=== PATIENT | male | born 1990 | race African-American/Black ===

== ENCOUNTER 2018-01-26 14:02 | Inpatient (IN) | payer BC ==
[2018-01-26 14:17] VITALS: BMI 23.8
--- NOTE | 2018-01-26 14:41 | HP ---
CIWA Score - CIWA Score Nausea/Vomitin Muscle Tremors: 3 Anxiety: 3 Agitation: 2 Paroxysmal Sweats: 1-Minimal Palms Moist Orientation: 0-Oriented Tacttile Disturbances: 1-Very Mild Itch/Numbness Auditory Disturbances: 1-Very Mild Visual Disturbances: 0-None Headache: 2-Mild CIWA-Ar Total Score: 16 Admission ROS BHS - HPI Chief Complaint: i need help to stop drinking alcohol,ecstasy Allergies/Adverse Reactions: Allergies Allergy/AdvReac Type Severity Reaction Status Date / Time No Known Allergies Allergy Verified 01/26/18 14:35 History of Present Illness: this 27 years old male with alcohol and ecstasy dependence,seeking detox, withdrawal symptom,never been in detox before hiv since 2016 no significant period of sobriety seizure last 3 weeks ago Exam Limitations: No Limitations - Ebola screening Have you traveled outside of the country in the last 21 days: No Have you been sick,other than usual withdrawal symptoms: No - Review of Systems Constitutional: Loss of Appetite, Malaise, Night Sweats, Changes in sleep, Weakness, Unintentional Wgt. Loss EENT: reports: Nose Congestion Respiratory: reports: No Symptoms reported Cardiac: reports: Palpitations GI: reports: Diarrhea, Nausea, Vomiting, Abdominal cramping : reports: No Symptoms Reported Musculoskeletal: reports: Back Pain, Muscle Pain Integumentary: reports: Dryness Neuro: reports: Headache, Tremors Endocrine: reports: No Symptoms Reported Hematology: reports: No Symptoms Reported, Other (hiv) Psychiatric: reports: No Sypmtoms Reported, Judgement Intact, Mood/Affect Appropiate, Orientated x3, Anxious, Depressed Patient History - Patient Medical History Hx Anemia: No Hx Asthma: No Hx Chronic Obstructive Pulmonary Disease (COPD): No Hx Cancer: No Hx Cardiac Disorders: No Hx Congestive Heart Failure: No Hx Hypertension: No Hx Hypercholesterolemia: No Hx Pacemaker: No HX Cerebrovascular Accident: No Hx Seizures: Yes (last 3 weeks ago) Hx Dementia: No Hx Diabetes: No Hx Gastrointestinal Disorders: No Hx Liver Disease: No Hx Genitourinary Disorders: No Hx Sexually Transmitted Disorders: No (genital herpes) Hx Renal Disease (ESRD): No Hx Thyroid Disease: No Hx Human Immunodeficiency Virus (HIV): Yes (2016) Hx Hepatitis C: No Hx Depression: Yes (anxiety,insomnia) Hx Suicide Attempt: No Hx Bipolar Disorder: No Hx Schizophrenia: No Other Medical History: no suicidal,no homicidal - Patient Surgical History Past Surgical History: No - PPD History Previous Implant?: Yes Documented Results: Negative w/o proof Implanted On Prior R Admission?: No PPD to be Administered?: Yes - Smoking Cessation Smoking history: Never smoked - Substance & Tx. History Hx Alcohol Use: Yes Hx Substance Use: Yes Substance Use Type: Alcohol Hx Substance Use Treatment: No - Substances Abused Alcohol Route: Oral Frequency: Daily Amount used: 2 6PKS BEER/ 1 PINT COGNAC Age of first use: 16 Date of Last Use: 01/25/18 Ectasy Route: Oral Frequency: 3-6 times per week Amount used: 2-4 PILLS Age of first use: 25 Date of Last Use: 01/25/18 Family Disease History - Family Disease History Family Disease History: CA: Mother (alcohol,cancer of thyroid,hiv), Other: Father (alcohol), Mother Admission Physical Exam [facility] - Vital Signs Vital Signs: Vital Signs - 24 hr 01/26/18 14:02 Temperature 98 F Pulse Rate 100 H Respiratory 20 Rate Blood Pressure 132/74 - Physical General Appearance: Yes: Moderate Distress, Tremorous, Irritable, Sweating, Anxious HEENTM: Yes: Normal ENT Inspection, JEREMIAH, Pharynx Normal Respiratory: Yes: Lungs Clear, Normal Breath Sounds, No Respiratory Distress Neck: Yes: Within Normal Limits, Supple, Trachea in good position Breast: Yes: Within Normal Limits Cardiology: Yes: Tachycardia Abdominal: Yes: Within Normal Limits, Normal Bowel Sounds, Non Tender, Soft Genitourinary: Yes: Within Normal Limits Back: Yes: Normal Inspection, Muscle Spasm Musculoskeletal: Yes: Back pain, Muscle Pain Extremities: Yes: Tremors Neurological: Yes: supervisor contingents II-XII NML intact, Alert, Motor Strength 5/5 Integumentary: Yes: Dry Lymphatic: Yes: Within Normal Limits - Diagnostic (1) Alcohol dependence with uncomplicated withdrawal Current Visit: Yes Status: Acute (2) Ecstasy abuse Current Visit: Yes Status: Acute (3) HIV (human immunodeficiency virus infection) Current Visit: Yes Status: Acute (4) Insomnia secondary to depression with anxiety Current Visit: Yes Status: Acute (5) Seizure Current Visit: Yes Status: Acute Cleared for Admission [facility] - Detox or Rehab [facility] Level of Care: Medically Managed Detox Regimen/Protocol: Librium BHS Breath Alcohol Content Breath Alcohol Content: 0 Urine Drug Screen - Results Drug Screen Negative: No Urine Drug Screen Results: MDMA-Ecstasy
[2018-01-26] MEDS ORDERED: MAGNESIUM HYDROX 2400MG/30ML ORAL SUSPENSION 30 ML CUP PO PRN (15:03)
[2018-01-26] MEDS ORDERED: IBUPROFEN 400 MG TABLET (FP) PO PRN (15:03)
[2018-01-26] MEDS ORDERED: MAG HYDROX/AL HYDROX/SIMETH 30 ML UNIT-DOSE CUP PO PRN (15:03)
[2018-01-26] MEDS ORDERED: MENTHOL/PHENOL 1 EACH UD MM PRN (15:03)
[2018-01-26] MEDS ORDERED: hydrOXYzine PAMOATE 50 MG CAPSULE (FP) PO PRN (15:03)
[2018-01-26] MEDS ORDERED: ACETAMINOPHEN 325 MG TABLET (FP) PO PRN (15:03)
[2018-01-26] MEDS ORDERED: guaiFENesin/D-METHORPHAN HB 10 ML UNIT-DOSE CUPS PO PRN (15:03)
[2018-01-26] MEDS ORDERED: MAGNESIUM CITRATE 300 ML BOTTLE PO PRN (15:03)
[2018-01-26] MEDS ORDERED: chlordiazePOXIDE HCL 25 MG CAPSULE PO PRN (15:03)
[2018-01-26] MEDS ORDERED: LOPERAMIDE HCL 2 MG CAPSULE PO PRN (15:03)
[2018-01-26] MEDS ORDERED: chlordiazePOXIDE HCL 25 MG CAPSULE PO ONE (15:03)
[2018-01-26] MEDS ORDERED: P-EPHED 60MG/TRIPROLIDI 2.5MG TABLET PO PRN (15:03)
[2018-01-26] MEDS: chlordiazePOXIDE HCL 25 MG CAPSULE PO SCH ×2 (17:27→22:16)
[2018-01-26] MEDS: THIAMINE HCL 100 MG TABLET (FP) PO SCH (22:16)
[2018-01-27 00:04] LABS: URINE APPEARANCE CLEAR; URINE BILIRUBIN NEGATIVE (<2.0 mg/dL); URINE COLOR YELLOW; URINE GLUCOSE (UA) NEGATIVE (NEGATIVE); URINE KETONE TRACE (NEGATIVE); URINE LEUK ESTERASE NEGATIVE (NEGATIVE); URINE NITRITE NEGATIVE (NEGATIVE); URINE PROTEIN NEGATIVE (NEGATIVE); URINE UROBILINOGEN 4.0 E.U/dl mg/dL (0.2-1.0)
[2018-01-27] MEDS: chlordiazePOXIDE HCL 25 MG CAPSULE PO SCH ×4 (05:19→22:14)
[2018-01-27 10:00] LABS: HEMATOCRIT 47.4 % (35.4-49); MCH 29.8 pg (25.7-33.7); MCHC 33.7 g/dl (32.0-35.9); MEAN CELL VOLUME 88.3 fl (80-96); PLATELET COUNT 268 K/MM3 (134-434); RBC 5.36 M/mm3 (4.00-5.60); RDW 13.1 % (11.9-15.9); WHITE BLOOD COUNT 6.7 K/mm3 (4.0-10.0)
[2018-01-27 10:04] LABS: CHLORIDE 104 mmol/L (98-107); POTASSIUM 3.6 mmol/L (3.5-5.1); SODIUM 141 mmol/L (136-145)
[2018-01-27] MEDS: PRENATAL VITAMINS W/ FOLIC ACID TABLET (FP) PO SCH (10:32)
[2018-01-27 10:37] LABS: ALBUMIN 4.2 g/dl (3.4-5.0); ALK PHOS 88 U/L (45-117); ANION GAP 8 (8-16); BILIRUBIN,TOTAL 1.5 mg/dL (0.2-1.0); BLOOD UREA NITROGEN 7 mg/dL (7-18); CALCIUM 9.3 mg/dL (8.5-10.1); CO2 29 mmol/L (21-32); CREATININE 1.1 mg/dL (0.7-1.3); GLUCOSE,RANDOM 79 mg/dL (74-106); SGOT/AST 16 U/L (15-37); SGPT/ALT 18 U/L (12-78); TOT PROT 8.2 g/dl (6.4-8.2)
--- NOTE | 2018-01-27 15:56 | PN ---
[facility] CIWA - CIWA Score Nausea/Vomitin-No Nausea/No Vomiting Muscle Tremors: None Anxiety: 5 Agitation: 2 Paroxysmal Sweats: 3 Orientation: 0-Oriented Tacttile Disturbances: 3-Moderate Itch/Numb/Burn Auditory Disturbances: 0-None Visual Disturbances: 2-Mild Sensitivity Headache: 0-None Present CIWA-Ar Total Score: 15 BHS Progress Note (SOAP) Subjective: Interrupted sleep, Fatigue, Anxious. Objective: PATIENT A & O X 3, OBSERVED AMBULATING ON UNIT. NO ACUTE DISTRESS. 01/27/18 15:57 Vital Signs Temperature 96.1 F L 01/27/18 13:31 Pulse Rate 90 01/27/18 13:31 Respiratory Rate 20 01/27/18 13:31 Blood Pressure 106/67 01/27/18 13:31 O2 Sat by Pulse Oximetry (%) Laboratory Tests 01/26/18 01/27/18 01/27/18 Unknown 07:00 07:00 WBC 6.7 RBC 5.36 Hgb 16.0 Hct 47.4 MCV 88.3 MCH 29.8 MCHC 33.7 RDW 13.1 Plt Count 268 MPV 9.0 Sodium 141 Potassium 3.6 Chloride 104 Carbon Dioxide 29 Anion Gap 8 BUN 7 Creatinine 1.1 Creat Clearance w eGFR > 60 Random Glucose 79 Calcium 9.3 Total Bilirubin 1.5 H AST 16 ALT 18 Alkaline Phosphatase 88 Total Protein 8.2 Albumin 4.2 Urine Color Yellow Urine Appearance Clear Urine pH 6.0 Ur Specific [place] 1.011 Urine Protein Negative Urine Glucose (UA) Negative Urine Ketones Trace H Urine Blood Negative Urine Nitrite Negative Urine Bilirubin Negative Urine Urobilinogen 4.0 e.u/dl Ur Leukocyte Esterase Negative RPR Titer 01/27/18 07:00 WBC RBC Hgb Hct MCV MCH MCHC RDW Plt Count MPV Sodium Potassium Chloride Carbon Dioxide Anion Gap BUN Creatinine Creat Clearance w eGFR Random Glucose Calcium Total Bilirubin AST ALT Alkaline Phosphatase Total Protein Albumin Urine Color Urine Appearance Urine pH Ur Specific [place] Urine Protein Urine Glucose (UA) Urine Ketones Urine Blood Urine Nitrite Urine Bilirubin Urine Urobilinogen Ur Leukocyte Esterase RPR Titer Nonreactive LABS NOTED. Assessment: 01/27/18 15:58 WITHDRAWAL SYMPTOMS. Plan: CONTINUE DETOX.
--- NOTE | 2018-01-27 15:58 | CONSULT ---
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 Substance Abuse History: moking Cessation. Smoking history: Never smoked. - Substance & Tx. History. Hx Alcohol Use: Yes. Hx Substance Use: Yes. Substance Use Type: Alcohol. Hx Substance Use Treatment: No. - Substances Abused. Alcohol. Route: Oral. Frequency: Daily. Amount used: 2 6PKS BEER / 1 PINT [place]GNAC. Age of first use: 16. Date of Last Use: 01/25/18. Ectasy. Route: Oral. Frequency: 3-6 times per week. Amount used: 2-4 PILLS. Age of first use: 25. Date of Last Use: 01/25/18 Medical History: Seizure history Psychiatric History: Denies Physical/Sexual Abuse/Trauma History: Denies Additional Comment: Observation. Detox Unit Carte Protocol Mental Status Exam - Mental Status Exam Alert and Oriented to: Person Cognitive Function: Fair Patient Appearance: Unkempt Mood: Sad Affect: Flat Patient Behavior: Sedated Speech Pattern: Delayed Voice Loudness: Mildly Soft/Quiet Thought Process: Circumstantial Thought Disorder: Being Controlled Hallucinations: Denies Suicidal Ideation: Denies Homicidal Ideation: Denies Insight/Judgement: Fair Sleep: Difficulty falling asleep Appetite: Fair Muscle strength/Tone: Mild Hypotonicity Gait/Station: Shuffling Additional Comments: Observation. Detox Unit Carte Protocol Psychiatric Findings - Problem List (Independence 1, 2,3) (1) Benzodiazepine abuse Current Visit: Yes Status: Acute (2) Nicotine dependence Current Visit: Yes Status: Acute (3) Alcohol dependence with uncomplicated withdrawal Current Visit: Yes Status: Acute (4) Ecstasy abuse Current Visit: Yes Status: Acute (5) Drug-induced mood disorder Current Visit: Yes Status: Suspected - Initial Treatment Plan Initial Treatment Plan: Observation. Detox Unit Carte Protocol
--- NOTE | 2018-01-27 16:34 | EKG ---
Test Reason : Blood Pressure : / mmHG Vent. Rate : 069 BPM Atrial Rate : 069 BPM P-R Int : 122 ms QRS Dur : 090 ms QT Int : 392 ms P-R-T Axes : 034 075 064 degrees QTc Int : 420 ms NORMAL SINUS RHYTHM WITH SINUS ARRHYTHMIA NORMAL ECG NO PREVIOUS ECGS AVAILABLE Confirmed by ALBERTO PLATT, SLOANE ([id number]) on 01/27/2018 4:33:51 PM Referred By: Confirmed By:SLOANE DOMINGUEZ MD
[2018-01-27] MEDS: THIAMINE HCL 100 MG TABLET (FP) PO SCH (22:14)
[2018-01-27] MEDS: MELATONIN 5 MG TABLETS PO PRN (22:15)
[2018-01-28] MEDS: chlordiazePOXIDE HCL 25 MG CAPSULE PO SCH ×2 (05:49→10:15)
[2018-01-28] MEDS: PRENATAL VITAMINS W/ FOLIC ACID TABLET (FP) PO SCH (10:15)
--- NOTE | 2018-01-28 17:16 | PN ---
[facility] CIWA - CIWA Score Nausea/Vomitin-No Nausea/No Vomiting Muscle Tremors: 2 Anxiety: 4-Mod. Anxious/Guarded Agitation: 2 Paroxysmal Sweats: No Perspiration Orientation: 0-Oriented Tacttile Disturbances: 2-Mild Itch/Numbness/Burn Auditory Disturbances: 1-Very Mild Visual Disturbances: 3-Moderate Sensitivity Headache: 0-None Present CIWA-Ar Total Score: 14 BHS Progress Note (SOAP) Subjective: Tremors, Anxious, Fatigue. Objective: PATIENT A & O X 3, OBSERVED AMBULATING ON UNIT. NO ACUTE DISTRESS. 01/28/18 17:15 Vital Signs Temperature 97.9 F 01/28/18 14:08 Pulse Rate 84 01/28/18 14:08 Respiratory Rate 20 01/28/18 14:08 Blood Pressure 100/68 01/28/18 14:08 O2 Sat by Pulse Oximetry (%) Laboratory Tests 01/26/18 01/27/18 01/27/18 Unknown 07:00 07:00 WBC 6.7 RBC 5.36 Hgb 16.0 Hct 47.4 MCV 88.3 MCH 29.8 MCHC 33.7 RDW 13.1 Plt Count 268 MPV 9.0 Sodium 141 Potassium 3.6 Chloride 104 Carbon Dioxide 29 Anion Gap 8 BUN 7 Creatinine 1.1 Creat Clearance w eGFR > 60 Random Glucose 79 Calcium 9.3 Total Bilirubin 1.5 H AST 16 ALT 18 Alkaline Phosphatase 88 Total Protein 8.2 Albumin 4.2 Urine Color Yellow Urine Appearance Clear Urine pH 6.0 Ur Specific [place] 1.011 Urine Protein Negative Urine Glucose (UA) Negative Urine Ketones Trace H Urine Blood Negative Urine Nitrite Negative Urine Bilirubin Negative Urine Urobilinogen 4.0 e.u/dl Ur Leukocyte Esterase Negative RPR Titer 01/27/18 07:00 WBC RBC Hgb Hct MCV MCH MCHC RDW Plt Count MPV Sodium Potassium Chloride Carbon Dioxide Anion Gap BUN Creatinine Creat Clearance w eGFR Random Glucose Calcium Total Bilirubin AST ALT Alkaline Phosphatase Total Protein Albumin Urine Color Urine Appearance Urine pH Ur Specific [place] Urine Protein Urine Glucose (UA) Urine Ketones Urine Blood Urine Nitrite Urine Bilirubin Urine Urobilinogen Ur Leukocyte Esterase RPR Titer Nonreactive LABS NOTED. Assessment: 01/28/18 17:15 WITHDRAWAL SYMPTOMS. Plan: CONTINUE DETOX.
[2018-01-28] MEDS: chlordiazePOXIDE 5 MG CAPSULE PO SCH ×2 (17:34→22:21)
[2018-01-28] MEDS: THIAMINE HCL 100 MG TABLET (FP) PO SCH (22:21)
[2018-01-29] MEDS: chlordiazePOXIDE 5 MG CAPSULE PO SCH ×2 (05:14→10:19)
[2018-01-29] MEDS: PRENATAL VITAMINS W/ FOLIC ACID TABLET (FP) PO SCH (10:19)
--- NOTE | 2018-01-29 15:22 | PN ---
BHS Progress Note (SOAP) Subjective: Fatigue, Interrupted Sleep. Objective: PATIENT A & O X 2 (UNCERTAIN ABOUT CURRENT DAY / DATE). NO ACUTE DISTRESS. 01/29/18 15:20 Vital Signs Temperature 96.4 F L 01/29/18 14:48 Pulse Rate 84 01/29/18 14:48 Respiratory Rate 18 01/29/18 14:48 Blood Pressure 133/70 01/29/18 14:48 O2 Sat by Pulse Oximetry (%) Laboratory Tests 01/26/18 01/27/18 01/27/18 Unknown 07:00 07:00 WBC 6.7 RBC 5.36 Hgb 16.0 Hct 47.4 MCV 88.3 MCH 29.8 MCHC 33.7 RDW 13.1 Plt Count 268 MPV 9.0 Sodium 141 Potassium 3.6 Chloride 104 Carbon Dioxide 29 Anion Gap 8 BUN 7 Creatinine 1.1 Creat Clearance w eGFR > 60 Random Glucose 79 Calcium 9.3 Total Bilirubin 1.5 H AST 16 ALT 18 Alkaline Phosphatase 88 Total Protein 8.2 Albumin 4.2 Urine Color Yellow Urine Appearance Clear Urine pH 6.0 Ur Specific [place] 1.011 Urine Protein Negative Urine Glucose (UA) Negative Urine Ketones Trace H Urine Blood Negative Urine Nitrite Negative Urine Bilirubin Negative Urine Urobilinogen 4.0 e.u/dl Ur Leukocyte Esterase Negative RPR Titer 01/27/18 07:00 WBC RBC Hgb Hct MCV MCH MCHC RDW Plt Count MPV Sodium Potassium Chloride Carbon Dioxide Anion Gap BUN Creatinine Creat Clearance w eGFR Random Glucose Calcium Total Bilirubin AST ALT Alkaline Phosphatase Total Protein Albumin Urine Color Urine Appearance Urine pH Ur Specific [place] Urine Protein Urine Glucose (UA) Urine Ketones Urine Blood Urine Nitrite Urine Bilirubin Urine Urobilinogen Ur Leukocyte Esterase RPR Titer Nonreactive LABS NOTED. Assessment: 01/29/18 15:21 WITHDRAWAL SYMPTOMS. Plan: CONTINUE DETOX. INCREASE DAILY PO FLUID INTAKE. ENCOURAGE AMBULATION. PATIENT SCHEDULED FOR D/C TOMORROW.
[2018-01-29] MEDS: chlordiazePOXIDE HCL 10 MG CAPSULE PO SCH ×2 (18:00→22:19)
[2018-01-29] MEDS: THIAMINE HCL 100 MG TABLET (FP) PO SCH (22:19)
[2018-01-29] MEDS: MELATONIN 5 MG TABLETS PO PRN (22:20)
[2018-01-30] MEDS: chlordiazePOXIDE HCL 10 MG CAPSULE PO SCH (05:19)
[2018-01-30 06:03] VITALS: BP 102/70; PULSE 75; TEMP 97
--- NOTE | 2018-01-30 12:03 | DS ---
[facility] Detox Discharge Summary Admission Date: 01/26/18 Discharge Date: 01/30/18 - History Present History: Alcohol Dependence Pertinent Past History: HIV infection - Physical Exam Results Vital Signs: Vital Signs Temperature 97 F L 01/30/18 06:02 Pulse Rate 75 01/30/18 06:02 Respiratory Rate 18 01/30/18 06:02 Blood Pressure 102/70 01/30/18 06:02 O2 Sat by Pulse Oximetry (%) Pertinent Admission Physical Exam Findings: Withdrawal symptoms Laboratory Tests 01/26/18 01/27/18 01/27/18 Unknown 07:00 07:00 WBC 6.7 RBC 5.36 Hgb 16.0 Hct 47.4 MCV 88.3 MCH 29.8 MCHC 33.7 RDW 13.1 Plt Count 268 MPV 9.0 Sodium 141 Potassium 3.6 Chloride 104 Carbon Dioxide 29 Anion Gap 8 BUN 7 Creatinine 1.1 Creat Clearance w eGFR > 60 Random Glucose 79 Calcium 9.3 Total Bilirubin 1.5 H AST 16 ALT 18 Alkaline Phosphatase 88 Total Protein 8.2 Albumin 4.2 Urine Color Yellow Urine Appearance Clear Urine pH 6.0 Ur Specific [place] 1.011 Urine Protein Negative Urine Glucose (UA) Negative Urine Ketones Trace H Urine Blood Negative Urine Nitrite Negative Urine Bilirubin Negative Urine Urobilinogen 4.0 e.u/dl Ur Leukocyte Esterase Negative RPR Titer 01/27/18 07:00 WBC RBC Hgb Hct MCV MCH MCHC RDW Plt Count MPV Sodium Potassium Chloride Carbon Dioxide Anion Gap BUN Creatinine Creat Clearance w eGFR Random Glucose Calcium Total Bilirubin AST ALT Alkaline Phosphatase Total Protein Albumin Urine Color Urine Appearance Urine pH Ur Specific [place] Urine Protein Urine Glucose (UA) Urine Ketones Urine Blood Urine Nitrite Urine Bilirubin Urine Urobilinogen Ur Leukocyte Esterase RPR Titer Nonreactive Labs reviewed - Treatment Hospital Course: Detox Protocol Followed, Detoxed Safely, Responded well, Discharged Condition Good - Medication Discharge Medications: Ambulatory Orders Darunavir/Cobicistat [Prezcobix 800 mg-150 mg Tablet] 1 each PO DAILY 01/26/18 Emtricitabine/Tenofovir [Truvada] 1 tab PO DAILY 01/26/18 - Diagnosis (1) Alcohol dependence with uncomplicated withdrawal Status: Acute (2) Benzodiazepine abuse Status: Acute (3) Ecstasy abuse Status: Acute (4) Insomnia secondary to depression with anxiety Status: Acute (5) Nicotine dependence Status: Chronic (6) HIV (human immunodeficiency virus infection) Status: Chronic (7) Drug-induced mood disorder Status: Acute - AMA Did Patient Leave Against Medical Advice: No (F/U with your PCP within 1-2 weeks )
== END 2018-01-30 09:10 | disposition home or self-care (01) | DRG 897 ==
LOC: YASAS 14:02 → Y3N 16:33
PROVIDERS: ADMIT Internal Medicine; ATTEND Internal Medicine
PROC: HZ2ZZZZ Detoxification Services for Substance Abuse Treatment (ICD-10-PCS; principal; 2018-01-26)
DX: F10.230 Alcohol dependence with withdrawal, uncomplicated (principal); F13.10 Sedative, hypnotic or anxiolytic abuse, uncomplicated; F15.10 Other stimulant abuse, uncomplicated; F17.210 Nicotine dependence, cigarettes, uncomplicated; F51.05 Insomnia due to other mental disorder; F41.9 Anxiety disorder, unspecified; F19.24 Other psychoactive substance dependence with psychoactive substance-induced mood disorder; Z21 Asymptomatic human immunodeficiency virus [HIV] infection status; G40.909 Epilepsy, unspecified, not intractable, without status epilepticus
CPT/HCPCS: 36415; 80053; 81003; 85027; 86593; 93005; 93010